=== PATIENT | female | born 1945 | race Asian ===

== ENCOUNTER 2020-12-13 05:40 | Day surgery (SDC) | payer OTHER ==
[~2020-12-13] VITALS: Ht 162.6 cm; Wt 57.2 kg
[2020-12-13] MEDS ORDERED: fentaNYL citrate 0.05 MG/ML VIAL ONE (07:46)
[2020-12-13] MEDS ORDERED: LIDOCAINE 2% 100 MG/5 ML UJET TP ONE ×2 (07:46→08:20)
[2020-12-13] MEDS ORDERED: fentaNYL citrate 0.05 MG/ML VIAL IVP ONE (08:20)
== END 2020-12-13 09:02 | disposition home or self-care (01) ==
LOC: MDS 05:40 → MMU 05:55 → MDS 09:02
PROVIDERS: ATTEND Internal Medicine Gastroenterology
DX: Z12.11 Encounter for screening for malignant neoplasm of colon (principal); K63.5 Polyp of colon; I10 Essential (primary) hypertension; E78.00 Pure hypercholesterolemia, unspecified; Z79.899 Other long term (current) drug therapy
CPT/HCPCS: 45385; J3010